=== PATIENT | male | born 2000 | race Caucasian/White ===

== ENCOUNTER 2019-06-01 17:09 | Inpatient (IN) ==
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
[2019-06-01 17:46] LABS: Bilirubin,Urine Negative (Negative); Blood,Urine Negative (Negative); Clarity,Urine Clear (Clear); Color,Urine Yellow (Yellow); Glucose,Urine (UA) Normal (Normal); Ketones,Urine Negative (Negative); Leukocyte Esterase,Urine Negative (Negative); Nitrite,Urine Negative (Negative); PH,Urine 6.5 pH Units (5.0-8.0); Protein,Urine Negative (Neg-Trace); Specific Gravity,Urine 1.014 (1.010-1.025); Urobilinogen,Urine Normal (Normal)
[2019-06-01 17:46] LABS: White Blood Count 4.3 K/mcL (4.3-11.1)
[2019-06-01 17:47] LABS: Basophils % 0.5 %; Eosinophils # 0.1 K/mcL (0.0-0.6); Eosinophils % 1.4 %; Hematocrit 42.1 % (37.5-50.1); Hemoglobin 14.7 g/dL (12.9-16.9); Immature Granulocytes % 0.2 % (0-4); Lymphocytes # 1.5 K/mcL (0.6-4.6); Lymphocytes % 34.7 %; Mean Corpuscular HGB Conc 34.9 g/dL (31.6-35.5); Mean Corpuscular Hemoglobin 29.7 pg (28.0-33.3); Mean Corpuscular Volume 85.1 fL (83.0-100.0); Mean Platelet Volume 9.3 fL (9.4-12.4); Monocytes # 0.7 K/mcL (0.0-1.3); Monocytes % 15.6 %; Platelet Count 224 K/mcL (140-400); Red Blood Count 4.95 M/mcL (4.19-5.50); Red Cell Distribution Width 11.9 % (11.5-14.5); Segmented Neutrophils % 47.6 %
[2019-06-01 18:00] LABS: Amphetamine Screen,Urine Negative ng/mL (Cutoff=1000); Barbiturate Screen,Urine Negative ng/mL (Cutoff=200); Benzodiazepines Screen,Urine Negative ng/mL (Cutoff=200); Cannabinoid Screen,Urine Positive ng/mL (Cutoff = 50); Cocaine Screen,Urine Negative ng/mL (Cutoff= 300); Opiate Screen,Urine Negative ng/mL (Cutoff=300); Phencyclidine Screen,Urine Negative ng/mL (Cutoff=25)
[2019-06-01 18:06] LABS: Acetaminophen < 10 mcg/mL (10-20); BUN/Creatinine Ratio 16 (6-26); Blood Urea Nitrogen 17 mg/dL (6-20); Calcium 10.1 mg/dL (8.6-10.3); Carbon Dioxide 28 mEq/L (23-29); Chloride 102 mEq/L (98-107); Ethanol < 10 mg/dL (Less than 10); Glucose 94 mg/dL (70-105); Osmolality,Calculated 287 (280-300); Potassium 3.6 mEq/L (3.5-5.1); Salicylate < 2.5 mg/dL (15.0-30.0); Sodium 138 mEq/L (136-145); eGFR For African Americans > 60; eGFR For Non-African Americans > 60
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
[2019-06-01] MEDS ORDERED: Haloperidol Lactate 5 MG/ML VIAL IM PRN (20:36)
[2019-06-01] MEDS ORDERED: traZODone 50 MG TABLET PO PRN (20:36)
[2019-06-01] MEDS ORDERED: *HR* LORazepam 1 MG TABLET PO PRN (20:36)
[2019-06-01] MEDS ORDERED: Mag Hydrox/Al Hydrox/Simeth 30 ML UDC PO PRN (20:36)
[2019-06-01] MEDS ORDERED: *HR* LORazepam 2 MG/ML VIAL IM PRN (20:36)
[2019-06-01] MEDS ORDERED: hydrOXYzine pamoate 25 MG CAPSULE PO PRN (20:36)
[2019-06-01] MEDS ORDERED: Acetaminophen 325 MG TABLET PO PRN (20:36)
[2019-06-02] MEDS ORDERED: Bacitracin/PolymyxinB OPTH Oin 3.5 APPL/3.5 GM TUBE LEFT EYE SCH (09:30)
--- NOTE | 2019-06-02 09:31 | Psychiatry History & Physical ---
Date of Encounter: 06/02/19 Time of Encounter: 09:00 History of Present Illness Patient Stated Chief Complaint: "I want to " Medicare Admission Attestation: For traditional Medicare patients the provided hospital inpatient services are reasonable and necessary and in the case of services not specified as inpatient-only under 42 CFR 419.22 (n), that they are appropriately provided as inpatient services in accordance 42 CFR 412.3. For Critical Access Hospital the patient may reasonably be expected to be discharged or transferred to a hospital within 96 hours after admission to the Critical Access Hospital. Admitted From: Emergency Dept Plans for Post Hospital Care: Home History of Present Illness: Mr. Fierro is a 19-year-old male with past medical history of anxiety and depression, presenting emergency department with suicidal ideation. He states that he has been dealing with anxiety and depression for the past couple years, and has not been on any medications for the past year. States that today his thoughts of hurting himself worse. He states he had the plan and intent to drive his car off the highway ramp. He has tried to hurt himself 3-4 times in the past, once with medications, intentional car accident, and cutting himself. He has never been hospitalized for any of these symptoms. This morning he continues to report suicidal ideations with a plan to wreck his car if he were to be released. He reports sad mood, decreased interest, feelings of guilt and worthlessness, low energy, poor sleep, decreased appetite and impaired concentration. He denies a history of manic symptoms such as elevated irritable mood, grandiosity, decreased need for sleep, racing thoughts. He does report some anxiety but no panic attacks. He denies psychotic symptoms such as hallucinations or delusions. Past Med Surg Social Fam HX - Past Medical History Medical history: no medical history - Past Psychiatric History Psychiatric history: Reports: depression, prior suicide attempt. Denies: previous psychiatric hospitalization Past psychiatric history details: Patient reports he has been treated for depression in the past with Celexa which was not helpful and he stopped about a year ago. He said he has tried another medication but he cannot recall the name of it. He has never been in a psychiatric hospital before. He has never been in outpatient counseling or seen a psychiatrist. The Celexa is prescribed by family doctor. He has had suicide attempts in the past including cutting on his arms and overdosing. Family psychiatric history: Yes Family Psychiatric History Details: Mother has depression he is unsure what medication she takes Family History of Suicide: None - Past Surgical History Surgical History: no surgical history - Social History Smoking Status: Never smoker Smokeless Tobacco Status: No Alcohol use: rarely Drug use: marijuana Occupational status: student Current living situation: Home, With Family Activity Level: Independent ambulation Recent Out of Country Travel Within the Last 8 Weeks: No Exposure or Possible Exposure to Illness During Travel: No Additional social history: He lives with his mother and sister and brother. They are triplets. Today is his birthday. He is a nursing tech. He is not in a relationship and has no children. Medications & Allergies No Known Home Drugs 06/01/19 [History] Allergy/AdvReac Type Severity Reaction Status Date / Time No Known Allergies Allergy Verified 06/01/19 17:13 Review of Systems Constitutional: Denies: fever Eyes: Reports: eye discharge Ears, Nose, Throat: Denies: ear pain Cardiovascular: Denies: chest pain Respiratory: Denies: cough Gastrointestinal: Denies: abdominal pain Genitourinary male: Denies: urgency Musculoskeletal: Denies: back pain Integumentary: Denies: rash Neurological: Denies: headache Psychiatric: Reports: depression, anxiety, abnormal sleep pattern, suicidal ideation, change in appetite, anhedonia, hopelessness. Denies: homicidal ideation, auditory hallucinations, visual hallucinations Endocrine: Reports: fatigue Hematologic/Lymphatic: Denies: easy bleeding Allergic/Immunologic: Denies: facial swelling Exam - HEENT Head exam IM: Present: atraumatic Eye exam IM: Present: conjunctival injection (Swollen and has positive liquidy discharge.) ENT exam IM: Present: mucous membranes moist - Neurological Neurological exam: Present: CN II-XII intact (Grossly) - Respiratory Respiratory exam IM: Absent: respiratory distress - GI/Abdominal GI/Abdominal exam IM: Present: no peritoneal signs - Extremities Extremities exam IM: Present: full ROM - Skin Skin exam IM: Absent: abrasion - Constitutional Vitals: Temp Pulse Resp BP Pulse Ox 97.7 F 74 16 113/74 98 06/02/19 09:00 06/02/19 09:00 06/02/19 09:00 06/02/19 09:00 06/02/19 09:00 General appearance: age & developmentally appropriate - Musculoskeletal Gait: slow Station: stooped Strength & Tone: normal for patient - Psychiatric Patient Orientation: Yes Person, Yes Time, Yes Place, Yes Circumstance Level of alertness: Alert Behavior: tearful Psychomotor activity: Slowed Eye Contact: Minimal Contact Mood Description: Depressed Patient description of mood: Sad Affect description: dysphoric Speech Volume: Soft/Quiet Speech pattern: slowed Language & Vocabulary: consistent with education Thought Content: Yes Suicidal ideation, No Homicidal ideation, No Overt delusions Perceptual Disturbances: No Auditory hallucinations, No Visual hallucinations Attention Span Ability: Capable of Focused Attention Memory Description: Grossly Intact Patient Reliability: Reliable Historian Fund of knowledge: Yes abstraction ability, Yes average, Yes aware of current events Intelligence Estimate: Average Judgment: Poor Insight: None Results - Drug Levels and Toxicology Drug Levels and Toxicology: Drug Levels and Toxicity 06/01/19 06/01/19 17:30 17:33 Urine Opiates Screen Negative Acetaminophen < 10 L Ur Barbiturates Screen Negative Ur Phencyclidine Scrn Negative Ur Amphetamines Screen Negative U Benzodiazepines Scrn Negative Urine Cocaine Screen Negative U Marijuana (THC) Screen Positive H Ethyl Alcohol < 10 - Labs Labs: Laboratory Last Values WBC 4.3 K/mcL (4.3-11.1) 06/01/19 17:33 RBC 4.95 M/mcL (4.19-5.50) 06/01/19 17:33 Hgb 14.7 g/dL (12.9-16.9) 06/01/19 17:33 Hct 42.1 % (37.5-50.1) 06/01/19 17:33 MCV 85.1 fL (83.0-100.0) 06/01/19 17:33 MCH 29.7 pg (28.0-33.3) 06/01/19 17:33 MCHC 34.9 g/dL (31.6-35.5) 06/01/19 17:33 RDW 11.9 % (11.5-14.5) 06/01/19 17:33 Plt Count 224 K/mcL (140-400) 06/01/19 17:33 MPV 9.3 fL (9.4-12.4) L 06/01/19 17:33 Immature Gran % 0.2 % (0-4) 06/01/19 17:33 Seg Neutrophils % 47.6 % 06/01/19 17:33 Lymphocytes % 34.7 % 06/01/19 17:33 Monocytes % 15.6 % 06/01/19 17:33 Eosinophils % 1.4 % 06/01/19 17:33 Basophils % 0.5 % 06/01/19 17:33 Neutrophils # 2.0 K/mcL (1.6-8.9) 06/01/19 17:33 Lymphocytes # 1.5 K/mcL (0.6-4.6) 06/01/19 17:33 Monocytes # 0.7 K/mcL (0.0-1.3) 06/01/19 17:33 Eosinophils # 0.1 K/mcL (0.0-0.6) 06/01/19 17:33 Basophils # 0.0 K/mcL (0.0-0.2) 06/01/19 17:33 Sodium 138 mEq/L (136-145) 06/01/19 17:33 Potassium 3.6 mEq/L (3.5-5.1) 06/01/19 17:33 Chloride 102 mEq/L (98-107) 06/01/19 17:33 Carbon Dioxide 28 mEq/L (23-29) 06/01/19 17:33 BUN 17 mg/dL (6-20) 06/01/19 17:33 Creatinine 1.04 mg/dL (0.70-1.30) 06/01/19 17:33 Est GFR ( Amer) > 60 06/01/19 17:33 Est GFR (Non-Af Amer) > 60 06/01/19 17:33 BUN/Creatinine Ratio 16 (6-26) 06/01/19 17:33 Glucose 94 mg/dL (70-105) 06/01/19 17:33 Calculated Osmolality 287 (280-300) 06/01/19 17:33 Calcium 10.1 mg/dL (8.6-10.3) 06/01/19 17:33 Urine Color Yellow (Yellow) 06/01/19 17:30 Urine Clarity Clear (Clear) 06/01/19 17:30 Urine pH 6.5 pH Units (5.0-8.0) 06/01/19 17:30 Ur Specific Benjamin 1.014 (1.010-1.025) 06/01/19 17:30 Urine Protein Negative mg/dL (Neg-Trace) 06/01/19 17:30 Urine Glucose (UA) Normal mg/dL (Normal) 06/01/19 17:30 Urine Ketones Negative mg/dL (Negative) 06/01/19 17:30 Urine Blood Negative (Negative) 06/01/19 17:30 Urine Nitrite Negative (Negative) 06/01/19 17:30 Urine Bilirubin Negative (Negative) 06/01/19 17:30 Urine Urobilinogen Normal mg/dL (Normal) 06/01/19 17:30 Ur Leukocyte Esterase Negative (Negative) 06/01/19 17:30 Salicylates < 2.5 mg/dL (15.0-30.0) L 06/01/19 17:33 Urine Opiates Screen Negative ng/mL (Awmwuh=733) 06/01/19 17:30 Ur Buprenorphine Scrn Negative ng/mL (Cutoff=5) 06/01/19 17:30 Acetaminophen < 10 mcg/mL (10-20) L 06/01/19 17:33 Ur Barbiturates Screen Negative ng/mL (Cgtdyj=725) 06/01/19 17:30 Ur Phencyclidine Scrn Negative ng/mL (Cutoff=25) 06/01/19 17:30 Ur Amphetamines Screen Negative ng/mL (Utxnos=1102) 06/01/19 17:30 U Benzodiazepines Scrn Negative ng/mL (Wavxit=496) 06/01/19 17:30 Urine Cocaine Screen Negative ng/mL (Cutoff= 300) 06/01/19 17:30 U Marijuana (THC) Screen Positive ng/mL (Cutoff = 50) H 06/01/19 17:30 Ur Drug Screen Interp See Below 06/01/19 17:30 Ethyl Alcohol < 10 mg/dL (Less than 10) 06/01/19 17:33 Assessment and Plan (1) Depression Current visit: Yes Status: Acute Plan: Admit inpatient for safety and stabilization, Close observation, Suicide Precautions per unit protocol, Encourage participation in unit milieu, Group Therapy, Monitor sleep, Monitor appetite Additional Plan: We will start Wellbutrin XL 150 mg by mouth every morning for depression. Encourage group attendance. Therapists work on discharge planning. Risks, benefits, side effects, alternatives discussed w/pt: Yes Patient agreeable to treatment: Yes Plans for Post Hospital Care: Home Estimated Length of Stay (Days): 3 Qualifiers: Depression Type: major depressive disorder Major depression recurrence: recurrent Active/Remission status: currently active Major depression episode severity: unspecified Qualified Code(s): F33.9 - Major depressive disorder, recurrent, unspecified
[2019-06-02] MEDS: Doxycycline 100 MG CAPSULE PO SCH ×2 (10:54→20:12)
[2019-06-02] MEDS: BuPROPion XL (24 HR) 150 MG TABLET PO SCH (10:54)
[2019-06-02] MEDS: Ciprofloxacin HCL Soln 5 ML BOTTLE LEFT EYE SCH ×4 (11:50→18:12)
[2019-06-02] MEDS: Ciprofloxacin HCL Soln 5 ML BOTTLE BOTH EYES SCH ×3 (18:42→22:00)
[2019-06-03] MEDS: Ciprofloxacin HCL Soln 5 ML BOTTLE BOTH EYES SCH ×3 (06:07→10:18)
[2019-06-03] MEDS: BuPROPion XL (24 HR) 150 MG TABLET PO SCH (08:24)
[2019-06-03] MEDS: Doxycycline 100 MG CAPSULE PO SCH (08:24)
--- NOTE | 2019-06-03 08:33 | Discharge Summary ---
Date of Encounter: 06/03/19 Time of Encounter: 07:40 Diagnosis - Discharge Diagnosis (1) Depression Status: Acute Qualifiers: Depression Type: major depressive disorder Major depression recurrence: r ecurrent Active/Remission status: currently active Major depression episode severity: unspecified Qualified Code(s): F33.9 - Major depressive disorder, recurrent, unspecified Medications - Discharge Medications Prescriptions: BuPROPion XL (24 HR) [Wellbutrin Xl] 150 mg PO DAILY #15 tab.er.24h BuPROPion XL (24 HR) [Wellbutrin Xl] 150 mg PO DAILY #15 tab.er.24h 06/03/19 [Rx] Ciprofloxacin HCL [Ciloxan OPTH Soln] 1 drop BOTH EYES Q2HWA bottle 06/03/19 [Rx] Doxycycline 100 mg PO BID capsule 06/03/19 [Rx] Allergy/AdvReac Type Severity Reaction Status Date / Time No Known Allergies Allergy Verified 06/01/19 17:13 Results Procedures and tests throughout hospitalization: Completed Lab Orders Category Date Time Status Acetaminophen Stat Lab 06/01/19 17:33 Completed Basic Metabolic Panel Stat Lab 06/01/19 17:33 Completed Complete Blood Count [HEME] Stat Lab 06/01/19 17:33 Completed Drug Screen, Urine [UCHEM] Stat Lab 06/01/19 17:30 Completed Ethanol Stat Lab 06/01/19 17:33 Completed Salicylate Stat Lab 06/01/19 17:33 Completed Urinalysis reflex Microscopic [URIN] Stat Lab 06/01/19 17:30 Completed Lab Results 06/01/19 06/01/19 06/01/19 Range/Units 17:30 17:30 17:33 WBC 4.3 (4.3-11.1) K/mcL RBC 4.95 (4.19-5.50) M/mcL Hgb 14.7 (12.9-16.9) g/dL Hct 42.1 (37.5-50.1) % MCV 85.1 (83.0-100.0) fL MCH 29.7 (28.0-33.3) pg MCHC 34.9 (31.6-35.5) g/dL RDW 11.9 (11.5-14.5) % Plt Count 224 (140-400) K/mcL MPV 9.3 L (9.4-12.4) fL Immature Gran % 0.2 (0-4) % Seg Neutrophils % 47.6 % Lymphocytes % 34.7 % Monocytes % 15.6 % Eosinophils % 1.4 % Basophils % 0.5 % Neutrophils # 2.0 (1.6-8.9) K/mcL Lymphocytes # 1.5 (0.6-4.6) K/mcL Monocytes # 0.7 (0.0-1.3) K/mcL Eosinophils # 0.1 (0.0-0.6) K/mcL Basophils # 0.0 (0.0-0.2) K/mcL Sodium (136-145) mEq/L Potassium (3.5-5.1) mEq/L Chloride (98-107) mEq/L Carbon Dioxide (23-29) mEq/L BUN (6-20) mg/dL Creatinine (0.70-1.30) mg/dL Est GFR ( Amer) Est GFR (Non-Af Amer) BUN/Creatinine Ratio (6-26) Glucose (70-105) mg/dL Calculated Osmolality (280-300) Calcium (8.6-10.3) mg/dL Urine Color Yellow (Yellow) Urine Clarity Clear (Clear) Urine pH 6.5 (5.0-8.0) pH Units Ur Specific Wells 1.014 (1.010-1.025) Urine Protein Negative (Neg-Trace) mg/dL Urine Glucose (UA) Normal (Normal) mg/dL Urine Ketones Negative (Negative) mg/dL Urine Blood Negative (Negative) Urine Nitrite Negative (Negative) Urine Bilirubin Negative (Negative) Urine Urobilinogen Normal (Normal) mg/dL Ur Leukocyte Esterase Negative (Negative) Salicylates (15.0-30.0) mg/dL Urine Opiates Screen Negative (Zqnsek=275) ng/mL Ur Buprenorphine Scrn Negative (Cutoff=5) ng/mL Acetaminophen (10-20) mcg/mL Ur Barbiturates Screen Negative (Bbxucf=708) ng/mL Ur Phencyclidine Scrn Negative (Cutoff=25) ng/mL Ur Amphetamines Screen Negative (Yyioqc=1622) ng/mL U Benzodiazepines Scrn Negative (Seumzm=824) ng/mL Urine Cocaine Screen Negative (Cutoff= 300) ng/mL U Marijuana (THC) Screen Positive H (Cutoff = 50) ng/mL Ur Drug Screen Interp See Below Ethyl Alcohol (Less than 10) mg/dL 06/01/19 Range/Units 17:33 WBC (4.3-11.1) K/mcL RBC (4.19-5.50) M/mcL Hgb (12.9-16.9) g/dL Hct (37.5-50.1) % MCV (83.0-100.0) fL MCH (28.0-33.3) pg MCHC (31.6-35.5) g/dL RDW (11.5-14.5) % Plt Count (140-400) K/mcL MPV (9.4-12.4) fL Immature Gran % (0-4) % Seg Neutrophils % % Lymphocytes % % Monocytes % % Eosinophils % % Basophils % % Neutrophils # (1.6-8.9) K/mcL Lymphocytes # (0.6-4.6) K/mcL Monocytes # (0.0-1.3) K/mcL Eosinophils # (0.0-0.6) K/mcL Basophils # (0.0-0.2) K/mcL Sodium 138 (136-145) mEq/L Potassium 3.6 (3.5-5.1) mEq/L Chloride 102 (98-107) mEq/L Carbon Dioxide 28 (23-29) mEq/L BUN 17 (6-20) mg/dL Creatinine 1.04 (0.70-1.30) mg/dL Est GFR ( Amer) > 60 Est GFR (Non-Af Amer) > 60 BUN/Creatinine Ratio 16 (6-26) Glucose 94 (70-105) mg/dL Calculated Osmolality 287 (280-300) Calcium 10.1 (8.6-10.3) mg/dL Urine Color (Yellow) Urine Clarity (Clear) Urine pH (5.0-8.0) pH Units Ur Specific Wells (1.010-1.025) Urine Protein (Neg-Trace) mg/dL Urine Glucose (UA) (Normal) mg/dL Urine Ketones (Negative) mg/dL Urine Blood (Negative) Urine Nitrite (Negative) Urine Bilirubin (Negative) Urine Urobilinogen (Normal) mg/dL Ur Leukocyte Esterase (Negative) Salicylates < 2.5 L (15.0-30.0) mg/dL Urine Opiates Screen (Fwkint=887) ng/mL Ur Buprenorphine Scrn (Cutoff=5) ng/mL Acetaminophen < 10 L (10-20) mcg/mL Ur Barbiturates Screen (Tvyjnp=946) ng/mL Ur Phencyclidine Scrn (Cutoff=25) ng/mL Ur Amphetamines Screen (Euhvlw=6354) ng/mL U Benzodiazepines Scrn (Odyzrs=598) ng/mL Urine Cocaine Screen (Cutoff= 300) ng/mL U Marijuana (THC) Screen (Cutoff = 50) ng/mL Ur Drug Screen Interp Ethyl Alcohol < 10 (Less than 10) mg/dL Provider Date of admission: 06/02/19 09:35 Primary care physician: PCP NONE Discharging clinician: Adriana Diaz Psychiatry Exam - Constitutional Vitals: Temp Pulse Resp BP Pulse Ox 98.9 F 76 16 139/71 98 06/02/19 20:09 06/02/19 20:09 06/02/19 20:09 06/02/19 20:09 06/02/19 20:09 General appearance: age & developmentally appropriate, well-groomed, well- nourished - Musculoskeletal Gait: normal Station: relaxed Strength & Tone: normal for patient - Psychiatric Patient Orientation: Yes Person, Yes Time, Yes Place, Yes Circumstance Level of alertness: Alert Behavior: calm, cooperative Psychomotor activity: Normal Eye Contact: Maintains Eye Contact Mood Description: Euthymic/stable Patient description of mood: Good Affect description: congruent with mood, full range Speech Volume: Normal Speech pattern: normal rate, normal rhythm, normal tone, fluent, spontaneous Language & Vocabulary: consistent with education Thought Process: Linear, Goal Oriented Thought Content: No Suicidal ideation, No Homicidal ideation, No Overt delusions Perceptual Disturbances: No Auditory hallucinations, No Visual hallucinations Attention Span Ability: Capable of Focused Attention Memory Description: Grossly Intact Patient Reliability: Reliable Historian Fund of knowledge: Yes abstraction ability, Yes aware of current events Intelligence Estimate: Average Judgment: Good Insight: Full Hospital Course Hospital course: Mr. Fierro is a 19 year old male who was admitted for suicidal thoughts and depression. He was started on Wellbutrin for his depression.Patient was educated of diagnosis and the risk-benefit side effects of this alternative treatment options and was monitored for responsiveness and side effects. Mood anxiety sleep and appetite interest improved as did future orientation. Self- harm thoughts subsided, thinking cleared, psychosis resolved, and mood stabilized. Patient was able to attend both individual and group therapy sessions as well as meet with the psychiatrist daily and urged to discuss any medication or treatment issues or other concerns. The patient was educated primarily by verbal means about their diagnosis and manifestations in their life. The option for treatment including group and individual therapy programming was offered to the patient in addition to the use of medications with all their potential risks, benefits, and side effects as well as the risks of not taking medication and non-adhereance were discussed with the patient at length. The patient was given the opportunity to ask questions and was noted to participate in the treatment in the planning process. The patient felt ready and eager to be discharged from the inpatient psychiatric unit to continue on with treatment as an outpatient. The patient agreed that is they were safe for this disposition. The patient was considered to be able to participate in informed consent and decision making with respect to medical, legal, and financial issues of the time of discharge. At the time of discharge the patient adamantly denied any concerns for lethality including suicidal or homicidal thoughts ideations or plans and was future oriented toward ongoing mental health care, medical follow-up and sobriety. Time spent discussing smoking cessation with patient: 3 to 10 minutes Does patient wish to continue nicotine replacement upon disc: No (n/a) - Time Spent with Patient Total time spent providing and/or coordinating discharge services: 20 Less than 30 minutes Specific discharge activities: Interval history reviewed. Available labs reviewed . Psychotherapy provided. Patient had an opportunity to ask questions and address concerns. Patient was in agreement with the treatment plan. The risks benefits and side effects of medications were discussed with the patient, including alternatives and treatment. The patient was educated on the abstaining from any alcohol or illicit substances, following up with all scheduled appointments, and taking all medications as prescribed. Assessment and Plan - Patient/Caregiver Discharge Instructions Activity: resume usual activities as tolerated Diet: regular diet Additional Instructions: Continue current medications. Follow up with outpatient mental health. Encourage continued therapy in a group or individual setting. The patient was discharged to home. - Follow up Plan Follow up with: NONE,PCP [Primary Care Provider] - Functional capacity at discharge: independent ambulation Overall status at discharge: Stable Disposition: Home, Self-Care Quality - Multiple Antipsychotics Patient discharged on 2 or more antipsychotic medications: No Procedures - Procedures Procedures: Medication Management, Crisis Stabilization, Supportive Therapy, Group Therapy, Psychoeducational Therapy
[2019-06-03 11:03] VITALS: BP 119/85
== END 2019-06-03 11:40 | disposition home or self-care (01) | DRG 885 ==
LOC: 1ANU 17:09 → EMEROOARM 17:09 → 1ANU 21:01
PROVIDERS: ADMIT Psychiatry & Neurology Psychiatry; ATTEND Psychiatry & Neurology Psychiatry